=== PATIENT | male | born 1935 | race Hispanic/Latino ===

== ENCOUNTER 2016-08-11 07:27 | Day surgery (SDC) | payer MEDICARE, OTHER ==
[2016-05-25 08:52] VITALS: PULSE 72
[2016-08-11 07:39] VITALS: BMI 28.2
[2016-08-11] MEDS ORDERED: Gentamicin 160 MG in Sodium Chloride 0.9% 100 ML IVPB ONE (07:56)
[2016-08-11] MEDS ORDERED: Lidocaine 2% Jelly (Uro-Jet) ONE (08:52)
[2016-08-11] MEDS ORDERED: Propofol 10 mg/ml Inj (20 ML) ONE (09:15)
[2016-08-11] MEDS ORDERED: Lactated Ringer's 1,000 ML IV ONE (09:28)
[2016-08-11] MEDS: Ciprofloxacin 400mg/200ml D5W 400 MG/200 ML BAG IVPB ONE ×2 (09:43→09:45)
--- NOTE | 2016-08-11 10:11 | PCM.SURG1 ---
Surgeon's Initial Post Op Note - Surgeon's Notes Surgeon: [place] Taker Down: Anai Type of Anesthesia: General LMA Anesthesia Administered By: staff Pre-Operative Diagnosis: BPH/PRADO Operative Findings: Same Post-Operative Diagnosis: same Operation Performed: [place] Specimen/Specimens Removed: N/A Estimated Blood Loss: EBL {In ML}: 0 Blood Products Given: N/A Drains Used: No Drains Post-Op Condition: Good Date of Surgery/Procedure: 08/11/16 Time of Surgery/Procedure: 10:11
[2016-08-11] MEDS ORDERED: HYDROmorphone 0.5 mg/0.5 ml ISec IVP PRN (10:20)
[2016-08-11 11:45] VITALS: BP 148/67; PULSE 56; RESP 18; TEMP 97.2; O2SAT 100
--- NOTE | 2016-08-11 16:07 | OP ---
PROCEDURE DATE: 08/11/2016 PREOPERATIVE DIAGNOSES: Benign prostatic hypertrophy with bladder outlet obstruction. POSTOPERATIVE DIAGNOSES: Benign prostatic hypertrophy with bladder outlet obstruction. PROCEDURE: TURLAP (GreenLight laser ablation of the prostate) SURGEON: Sanchez Be Jr. There are no assistants. FINDINGS: Trilobar hypertrophy of the prostate with bladder outlet obstruction. DESCRIPTION OF PROCEDURE: Prior to the procedure, a detailed informed consent was obtained from the patient. The patient was apprised of all the risks, complications and limitations of laser prostatec micha and the alternate methods of treating bladder outlet obstruction due to BPH. He elects to proce ed with the procedure and accepts the risks. He was brought into the room. He was draped and preppe d in the usual manner. A timeout was taken according to the rules and regulations of [facility] and after the patient received prophylactic antibiotics, he was cystoscoped with the laser cystoscop e. The bladder was inspected thoroughly with both 30 and 70 degree lens. There were no tumors or st ones. Both ureteral orifices effluxed clear urine. The prostate showed trilobar hypertrophy with mo derately severe outlet obstruction. There was no evidence of stricture. There were no stones or fis tulas. Based on the above findings, it was elected to proceed with the laser prostatectomy. The wor jacob element was inserted and the laser fiber was inserted and the working element. Vaporization of the prostate was begun at 11 o'clock just distal to the bladder neck and carried down to just proxima l to the verumontanum. The left lateral lobe, right lateral lobe, the base tissue and the roof tissu e were also vaporized. The bladder neck was somewhat high and was also vaporized with care to avoid injury to the ureteral orifices. No injury occurred to the external sphincter, ureteral orifices or bladder. There was no bleeding. The patient tolerated this procedure very well. Bladder was filled . The scope was removed and #20 two-way 5 mL catheter was inserted and inflated with a normal amount of saline. The patient was given detailed postoperative instructions. Followup in our office tomor row at 3:00 for Perez removal was arranged and the patient was given a prescription for Cipro and Per cocet. Sanchez Be MD cc: [id number] TT: 08/11/2016 16:06:43 tn
== END 2016-08-11 12:16 | disposition home or self-care (01) ==
LOC: C.SDS 07:27
PROVIDERS: ATTEND Urology
DX: N40.1 Benign prostatic hyperplasia with lower urinary tract symptoms (principal); N13.8 Other obstructive and reflux uropathy
CPT/HCPCS: 52648; J0744; J1580; J7120